=== PATIENT | male | born 1985 | race Caucasian/White ===

== ENCOUNTER 2021-01-19 20:57 | Observation (INO) ==
[2021-01-19] MEDS ORDERED: DILAUDID INJ IVP PRN (23:38)
[2021-01-19] MEDS: PROTONIX INJ 40 MG VIAL IVP SCH (23:59)
[2021-01-19] MEDS: D5 1/2 NS 1000 ML 1,000 ML IV SCH (23:59)
[2021-01-20 00:12] VITALS: BMI 24.6
[2021-01-20] MEDS: D5 1/2 NS 1000 ML 1,000 ML IV SCH ×2 (06:02→06:46)
--- NOTE | 2021-01-20 06:09 | RAD ---
HISTORYDysphagia EGDSTUDYAP [id number]/23/2018 report onlyFINDINGSNormal heart size and contour with clear lungs and pleural spaces.IMPRESSIONNormal AP chest examination.Electronically signed by: PETE PATTERSON (January 20, 2021 06:07:43)
[2021-01-20] MEDS: PROTONIX INJ 40 MG VIAL IVP SCH (08:01)
[2021-01-20] MEDS ORDERED: XYLOCAINE 2 % (PLAIN) ONE (08:47)
[2021-01-20] MEDS ORDERED: DIPRIVAN VIAL 40 ML ONE (08:48)
[2021-01-20 12:17] VITALS: BP 126/76
== END 2021-01-20 12:45 | disposition home or self-care (01) ==
LOC: MED/SURG
PROVIDERS: ADMIT Surgery; ATTEND Surgery
DX: X58.XXXA Exposure to other specified factors, initial encounter; K44.9 Diaphragmatic hernia without obstruction or gangrene; K21.00 Gastro-esophageal reflux disease with esophagitis, without bleeding; R13.11 Dysphagia, oral phase; T18.128A Food in esophagus causing other injury, initial encounter